=== PATIENT | male | born 1955 | race Two or more races ===

== ENCOUNTER 2018-08-30 01:09 | Inpatient (IN) | payer MEDICAID ==
[~2018-08-30] VITALS: Ht 175.3 cm; Wt 82.6 kg
--- NOTE | 2018-08-30 01:25 | NUR ---
PT BIBRA FROM HOME. PER RA, STATES HE IS MORE ALTERED THAN NORMAL. DENIES SOB, CHEST PAIN, ABDOMINAL PAIN, ETOH. PT AGITATED, ATTEMPTING TO GET OUT OF THE BED. VITAL SIGNS STABLE. SKIN WARM AND INTACT. PT PLACED ON CONTINUOUS MONITOR, WILL CONTINUE TO MONITOR
--- NOTE | 2018-08-30 01:26 | NUR ---
MD AT BEDSIDE FOR EVALUATION
--- NOTE | 2018-08-30 01:28 | NUR ---
IV INITIATED RIGHT AC 18G. LABS DRAWN FROM SITE. NUTRITION TECH AT BEDSIDE FOR COLLECTION. IV INTACT AND PATENT, PLACED ON SALINE LOCK
[2018-08-30] MEDS ORDERED: IV NS 0.9% 500 ML BAG IV ONE (01:30)
[2018-08-30] MEDS ORDERED: LIDOCAINE 2% JEL UROJET 10 ML MM ONE ×2 (01:31→02:30)
--- NOTE | 2018-08-30 01:35 | NUR ---
URINE COLLECTED AND SENT TO LAB
[2018-08-30 01:41] LABS: APPEARANCE,URINE Clear (CLEAR); BILIRUBIN,URINE SMALL (NEGATIVE); BLOOD, URINE Negative Ery/uL (NEGATIVE); COLOR,URINE Yellow (YELLOW); KETONES,URINE 15 (NEGATIVE); LEUKOCYTE ESTERASE ,URINE Negative (NEGATIVE); NITRITE, URINE Negative (NEGATIVE); PH,URINE 8.5 (5.0-8.0); PROTEIN,URINE 30 mg/dl (NEGATIVE); UGLUCOSE Negative (NEGATIVE); UROBILINOGEN,URINE >=8.0 EU/dL (0.2)
[2018-08-30] MEDS ORDERED: ONDANSETRON HCL/PF 4 MG/2 ML VIAL ONE (01:43)
[2018-08-30] MEDS ORDERED: PROPRANOLOL PO (01:44)
[2018-08-30] MEDS ORDERED: INSU100I26 SQ (01:44)
[2018-08-30] MEDS ORDERED: SPIRONOLACTONE (01:44)
[2018-08-30] MEDS ORDERED: LACT10SO PO (01:44)
--- NOTE | 2018-08-30 01:44 | NUR ---
PT'S TO BRING IN PT'S MEDICATIONS. MED LIST DONE FROM PT'S 'S MEMORY.
[2018-08-30 01:46] LABS: BASOPHILS % (AUTO) 0.4 % (0.0-2.0); EOSINOPHILS % (AUTO) 1.8 % (0.0-6.0); HEMATOCRIT 42 % (39-51); HEMOGLOBIN 14.7 g/dL (13.5-17.5); LYMPHOCYTES # (AUTO) 0.9 /CMM (0.8-4.8); LYMPHOCYTES % (AUTO) 18.1 % (20.0-44.0); MEAN CORPUSCULAR HGB CONC 35 g/dl (31.0-36.0); MEAN CORPUSCULAR VOLUME 101 fL (80-96); MONOCYTES # (AUTO) 0.4 /CMM (0.1-1.30); MONOCYTES % (AUTO) 8.1 % (2.0-12.0); NEUTROPHILS # (AUTO) 3.6 /CMM (1.8-8.9); NEUTROPHILS % (AUTO) 71.6 % (43.0-81.0); PLATELET COUNT (AUTO) 94 /CMM (150-450); WHITE BLOOD COUNT (AUTO) 5.1 K/uL (4.3-11.0)
[2018-08-30] MEDS ORDERED: LORAZEPAM INJ 2 MG/ML VIAL ONE ×2 (01:47→02:26)
--- NOTE | 2018-08-30 01:53 | NUR ---
PT YELLING AND BECAME MORE AGITATED. MEDICATED PER MD ORDER. PT STILL ON CONTINUOUS PROVIDER RELATIONS CONSULTANT, WILL CONTINUE TO MONITOR
[2018-08-30 01:55] LABS: CALCIUM, SERUM 8.7 mg/dL (8.5-10.1); CARBON DIOXIDE 22 mmol/L (21-32); CHLORIDE 112 mmol/L (98-107); CREATININE 1.3 mg/dL (0.6-1.3); GLUCOSE 147 mg/dL (74-106); POTASSIUM 4.2 mmol/L (3.5-5.1); SODIUM SERUM 142 mmol/L (136-145); UREA NITROGEN, BLOOD 16 mg/dL (7-18)
[2018-08-30] MEDS ORDERED: ONDANSETRON HCL/PF 4 MG/2 ML VIAL IV ONE (02:00)
[2018-08-30] MEDS ORDERED: LORAZEPAM INJ 2 MG/ML VIAL IV ONE ×2 (02:00→03:00)
[2018-08-30 02:02] LABS: SERUM AMMONIA 262 umol/L (11-32)
[2018-08-30 02:05] LABS: BACTERIA,URINE Few /HPF (None Seen); SQUAMOUS EPITHELIAL CELL,UR Rare /HPF (None Seen)
--- NOTE | 2018-08-30 02:07 | NUR ---
PT BROUGHT BY RADIOLOGY FOR CT
[2018-08-30 02:13] LABS: ALANINE AMINOTRANSFERASE 35 U/L (12-78); ALBUMIN 3.1 g/dL (3.4-5.0); ALCOHOL, BLOOD < 3 mg/dL (0-0); ALKALINE PHOSPHATASE 163 U/L (46-116); ASPARTATE AMINOTRANSFERASE 34 U/L (15-37); BILIRUBIN,DIRECT 0.6 mg/dL (0.0-0.2); BILIRUBIN,TOTAL 2.3 mg/dL (0.2-1.0); LYMPHOCYTES % (MANUAL) 12 % (16-48); MONOCYTES % (MANUAL) 5 % (0-11.0); NEUTROPHILS % (MANUAL) 83 (42-76); TOTAL PROTEIN, SERUM 6.4 g/dL (6.4-8.2)
[2018-08-30 02:14] LABS: ACETAMINOPHEN 0 ug/ml (10-30); SALICYLATE < 0.2 mg/dL (2.8-20.0)
--- NOTE | 2018-08-30 02:26 | NUR ---
RADIOLOGY CALLED, PT TOO AGITATED FOR HEAD CT. MD AWARE. PER VERBAL MD ORDER, WILL ADMINSITER ATIVAN 1MG IV X1 NOW.
[2018-08-30] MEDS ORDERED: LACTULOSE 10 G/15 ML UDC (PYXIS) PR ONE (02:30)
[2018-08-30] MEDS ORDERED: LACTULOSE 10 G/15 ML UDC (PYXIS) NG ONE (02:30)
[2018-08-30] MEDS ORDERED: LACTULOSE 10 G/15 ML UDC (PYXIS) ONE (02:45)
--- NOTE | 2018-08-30 03:29 | NUR ---
GAVE REPORT TO PABLITO KOCH FOR ELMA
[2018-08-30] MEDS: IV NS 0.9% 1,000 ML IV PRN ×2 (03:55→16:46)
--- NOTE | 2018-08-30 03:55 | NUR ---
TRANSFERRED PT TO [facility] 116-1 PER ACLS PROTOCOL
[2018-08-30] MEDS ORDERED: ONDANSETRON HCL/PF 4 MG/2 ML VIAL IVP PRN (04:00)
[2018-08-30] MEDS ORDERED: LACTULOSE 10 G/15 ML UDC (PYXIS) PO PRN (04:00)
[2018-08-30] MEDS ORDERED: Z GUARD REMEDY 2 OZ OINT TP PRN (04:00)
[2018-08-30] MEDS ORDERED: ACETAMINOPHEN 325 MG TABLET PO PRN (04:00)
[2018-08-30] MEDS ORDERED: LACTULOSE 10 G/15 ML UDC (PYXIS) PO ONE (04:00)
[2018-08-30 04:04] VITALS: BP 142/90
--- NOTE | 2018-08-30 07:30 | NUR ---
INITIAL PT YELLING AND BECAME MORE AGITATED. MEDICATED PER MD ORDER AFTER PAGING TRAN VALENTIN. PT STILL ON CONTINUOUS METER MAINTENANCE PERSON NSR AT 73 PT CALMS DOWN WHEN TALKING TO HIM BUT RETURNS TO AGGRESSIVE BEHAVIOR WHEN LEFT ALONE, PT HAS NG-TUBE NPO EXCEPT FOR MEDICATIONS TUBE FLUSHES WELL BED IN LOW POSITION WILL CONTINUE TO MONITOR
[2018-08-30] MEDS: LACTULOSE 10 G/15 ML UDC (PYXIS) PO SCH ×3 (07:57→16:37)
[2018-08-30] MEDS: LORAZEPAM INJ 2 MG/ML VIAL IV PRN ×4 (07:58→22:14)
[2018-08-30 08:00] VITALS: BP 146/83
[2018-08-30] MEDS: SPIRONOLACTONE 25 MG TABLET PO SCH (08:41)
[2018-08-30] MEDS: PROPRANOLOL LA 60 MG CAP.SA.24H PO SCH (08:41)
[2018-08-30] MEDS: RIFAXIMIN 550 MG TABLET PO SCH ×2 (08:41→16:30)
[2018-08-30 12:00] VITALS: BP 152/93
[2018-08-30 16:00] VITALS: BP 114/69
[2018-08-30] MEDS ORDERED: MISCELLANEOUS MED 1 EA EA XX ONE (16:30)
[2018-08-30] MEDS ORDERED: LACTULOSE UDC 200 G in SODIUM CHLORIDE IRRIG SOLUTION 400 ML IR ONE (16:30)
[2018-08-30 19:27] LABS: OCCULT BLOOD STOOL NEGATIVE (NEGATIVE)
[2018-08-30 20:00] VITALS: BP 120/78
--- NOTE | 2018-08-30 20:00 | NUR ---
RN NOTES RECEIVED BEDSIDE REPORT FROM AN RN. PT IS AGITATED AND KEEP MOVING IN THE BED . PT HAS NG-TUBE IN PLACE, NPO EXCEPT FOR MEDICATIONS TUBE FLUSHES WELL BED IN LOW POSITION, HOB IS ELEVATED AT ALL TIME. PATIENT IS ON BILATERAL SOFT WRIST RESTRAINTS. PULSES CHECKED, ALL SAFETY MEASURES ARE IMPLEMENTED. WILL CONTINUE TO MONITOR
--- NOTE | 2018-08-30 22:25 | NUR ---
RN NOTES PATIENT IS BECOMING MORE AGITATED ,MEDICATIONS ARE ALREADY GIVEN . PATIENT PULLED OUT HIS RECTAL TUBE X2. DOCUMENT REVIEW SPECIALIST WILLIAM AND NURSE STREET CONTRACTOR NOTIFIED. SITTER 1:1 HAS BEEN ORDERED FOR THIS PATIENT. WILL CONTINUE TO MONITOR PATIENT ACCORDINGLY.
[2018-08-31] MEDS: LACTULOSE 10 G/15 ML UDC (PYXIS) PO SCH ×2 (00:10→05:21)
--- NOTE | 2018-08-31 04:00 | NUR ---
RN NOTES PATIENT TEMPERATURE IS 100.1. COOLING MEASURES ARE PROVIDED. WILL RECHECK TEMP. LATER AGAIN.
[2018-08-31 04:05] VITALS: BP 116/58
--- NOTE | 2018-08-31 04:30 | NUR ---
RN NOTES PATIENT TEMPERATURE RECHECKED IT IS 98.1. WILL CONT. TO MONITOR PATIENT ACCORDINGLY.
--- NOTE | 2018-08-31 05:00 | NUR ---
RN NOTES PATIENT REPORT IS GIVEN TO AUGUST TOM TRANSFER OF PT CARE. PATIENT IS A/OX1 WITH CONFUSION BUT V/S ARE WNL . PATIENT IS IN STABLE CONDITION, STILL ON BILATERAL SOFT WRIST RESTRAINTS.
--- NOTE | 2018-08-31 06:36 | NUR ---
MS RN NOTES NO ACUTE CHANGES NOTED DURING THE SHIFT. DUE MEDS GIVEN. PROVIDED COMFORT AND SAFETY. WILL ENDORSE TO THE AM NURSE FOR CONTINUITY OF CARE.
[2018-08-31 06:44] LABS: BASOPHILS % (AUTO) 0.3 % (0.0-2.0); EOSINOPHILS % (AUTO) 1.2 % (0.0-6.0); HEMATOCRIT 40 % (39-51); HEMOGLOBIN 13.8 g/dL (13.5-17.5); LYMPHOCYTES % (AUTO) 12.3 % (20.0-44.0); MEAN CORPUSCULAR HGB CONC 35 g/dl (31.0-36.0); MEAN CORPUSCULAR VOLUME 102 fL (80-96); MONOCYTES # (AUTO) 0.8 /CMM (0.1-1.30); MONOCYTES % (AUTO) 9.2 % (2.0-12.0); NEUTROPHILS # (AUTO) 6.3 /CMM (1.8-8.9); PLATELET COUNT (AUTO) 84 /CMM (150-450); WHITE BLOOD COUNT (AUTO) 8.1 K/uL (4.3-11.0)
[2018-08-31 07:10] LABS: ALBUMIN 2.9 g/dL (3.4-5.0); BILIRUBIN,TOTAL 3.8 mg/dL (0.2-1.0); CALCIUM, SERUM 8.7 mg/dL (8.5-10.1); CREATININE 1.2 mg/dL (0.6-1.3); MAGNESIUM 1.4 mg/dL (1.8-2.4); PHOSPHORUS 2.7 mg/dL (2.5-4.9); POTASSIUM 3.5 mmol/L (3.5-5.1); TOTAL PROTEIN, SERUM 5.8 g/dL (6.4-8.2)
[2018-08-31 07:20] LABS: THYROID STIMULATING HORMONE 1.793 uIU/mL (0.358-3.74)
--- NOTE | 2018-08-31 07:51 | NUR ---
MS RN NOTES PATIENT IS IN STABLE CONDITION. IN NO APPARENT DISTRESS. BEDSIDE RAILS ARE UPX2. BED IS LOCKED AND LOWERED. CALL LIGHT IS WITHIN REACH. IV LINE IS INTACT AND PATENT. WILL CONTINUE TO MONITOR PATIENT.
[2018-08-31] MEDS: PROPRANOLOL LA 60 MG CAP.SA.24H PO SCH (09:00)
[2018-08-31] MEDS: SPIRONOLACTONE 25 MG TABLET PO SCH (09:33)
[2018-08-31] MEDS: RIFAXIMIN 550 MG TABLET PO SCH (09:33)
--- NOTE | 2018-08-31 09:38 | NUR ---
NON ADMINISTERED PROPRANOLOL. PATIENT IS ON AN NG TUBE AND MEDICATION NEEDS TO BE GIVEN WHOLE. SPOKE TO PHARMACY. PHARMACY WILL ASK THE DOCTOR IF IT IS OK TO GIVE TABLET FORM. WILL FOLLOW UP WITH PHARMACY.
[2018-08-31] MEDS: Magnesium 1GM/D5W 100ML PREMIX 100 ML IV SCH ×4 (09:39→14:07)
[2018-08-31 10:37] LABS: LYMPHOCYTES % (MANUAL) 13 % (16-48); MONOCYTES % (MANUAL) 6 % (0-11.0); NEUTROPHILS % (MANUAL) 81 (42-76)
[2018-08-31] MEDS ORDERED: SPIR25TA6 PO (11:57)
[2018-08-31] MEDS ORDERED: PROP10TA10 PO (11:57)
[2018-08-31] MEDS ORDERED: TEMA15CA PO (11:57)
[2018-08-31] MEDS ORDERED: OMEP40CA37 PO (11:57)
[2018-08-31] MEDS: PROPRANOLOL HCL 10 MG TABLET NG SCH ×2 (12:46→17:02)
[2018-08-31] MEDS ORDERED: PHENOL/SODIUM PHENOLATE 1 BOTTLE MM PRN (13:00)
[2018-08-31 16:00] VITALS: BP 137/82
[2018-08-31] MEDS: LACTULOSE 10 G/15 ML UDC (PYXIS) NG SCH (17:02)
[2018-08-31] MEDS: RIFAXIMIN 550 MG TABLET NG SCH (17:02)
--- NOTE | 2018-08-31 18:29 | NUR ---
MS RN CLOSING NOTES PATIENT IN STABLE CONDITION, IN NO APPARENT DISTRESS. IV IS INTACT AND PATENT. CALL LIGHT IS WITHIN REACH. BEDSIDE RAILS ARE UPX2. BED IS LOCKED AND LOWERED. WILL ENDORSE CARE TO NIGHTSHIFT NURSE FOR ELMA.
[2018-08-31 20:00] VITALS: BP 138/75
--- NOTE | 2018-08-31 20:00 | NUR ---
MS RN NOTES RECEIVED PTS IN BED AWAKE AND RESPONSIVE , V/S STABLE AFEBRILE, ON 1:1 SITTER AT BEDSIDE , PTS ON NG TUBE INTACT AND PATENT , ALL NEEDS ATTENDED TOO CALL LIGHT WITHIN REACH KEPT PTS CLEAN DRY AND COMFORTABLE.WILL CONTINUE TO MONITOR PTS.6
--- NOTE | 2018-08-31 22:59 | NUR ---
MS RN NOTES PTS CONTINUE ON NS AT 100CC/HR INFUSING WELL.
--- NOTE | 2018-08-31 23:51 | NUR ---
MS RN NOTES PTS IS NPO EXCEPT MEDS,
[2018-09-01] MEDS: LACTULOSE 10 G/15 ML UDC (PYXIS) NG SCH ×4 (00:33→17:04)
[2018-09-01] MEDS: IV NS 0.9% 1,000 ML IV PRN ×2 (01:47→16:55)
[2018-09-01 04:00] VITALS: BP 124/67
--- NOTE | 2018-09-01 06:10 | NUR ---
MS RN NOTES PTS REMAINS IN BED AWaKE ALERT AND RESPONSIVE , REMAINS ON NG TUBE INTACT AND PATENT V/S STABLE AFEBRILE ,ON 1:1 SITTER AT BEDSIDE .ALL NEEDS ATTENDED TOO .CALL LIGHT WITHIN REACH ,NO ELMA NOTED AT THIS TIME,WILL ENDORSE TO RN DAY SHIFT FOR CONTINUITY OF CARE.
[2018-09-01 08:00] VITALS: BP 131/76
--- NOTE | 2018-09-01 08:00 | NUR ---
MS RN RECEIVING NOTES RECEIVED THE PT FROM AUGUST JACKSON .PT IS LYING ON BED.HAS NG TUBE IS IN PLACE AND PT IS ON NPO STILL.NO VOMITING NOTED.SITTER IS AT BEDSIDE.ON ROOM AIR,TOLERATING WELL.NO SOB AND ACUTE DISTRESS NOTED.IV LINE IS ON LEFT HAND G20 WITH IV FLUIDS RUNNING.SITE IS CLEAN,DRY AND INTACT.NO INFILTRATION NOTED.SAFETY IS MAINTAINED AT ALL TIMES.BED IS IN LOW POSITION AND LOCKED.CALL LIGHT IS WITHIN REACH,WILL CONTINUE TO MONITOR THE PT CLOSELY.
[2018-09-01 08:23] LABS: BASOPHILS % (AUTO) 0.4 % (0.0-2.0); HEMATOCRIT 39 % (39-51); HEMOGLOBIN 13.6 g/dL (13.5-17.5); LYMPHOCYTES # (AUTO) 0.7 /CMM (0.8-4.8); LYMPHOCYTES % (AUTO) 12.5 % (20.0-44.0); MAGNESIUM 1.7 mg/dL (1.8-2.4); MEAN CORPUSCULAR HGB CONC 35 g/dl (31.0-36.0); MEAN CORPUSCULAR VOLUME 104 fL (80-96); MONOCYTES # (AUTO) 0.6 /CMM (0.1-1.30); MONOCYTES % (AUTO) 10.1 % (2.0-12.0); NEUTROPHILS # (AUTO) 4.4 /CMM (1.8-8.9); PHOSPHORUS 2.5 mg/dL (2.5-4.9); PLATELET COUNT (AUTO) 72 /CMM (150-450); RED BLOOD CELL COUNT(AUTO) 3.74 MIL/uL (4.5-6.0); WHITE BLOOD COUNT (AUTO) 5.9 K/uL (4.3-11.0)
[2018-09-01] MEDS: RIFAXIMIN 550 MG TABLET NG SCH ×2 (08:42→16:55)
[2018-09-01] MEDS: PANTOPRAZOLE 40 MG/PACK PACK NG SCH (08:42)
[2018-09-01] MEDS: PROPRANOLOL HCL 10 MG TABLET NG SCH ×3 (08:42→16:55)
[2018-09-01] MEDS: SPIRONOLACTONE 25 MG TABLET NG SCH (08:42)
[2018-09-01] MEDS: Magnesium 1GM/D5W 100ML PREMIX 100 ML IV SCH ×2 (09:29→10:31)
[2018-09-01 10:05] LABS: BAND % (MANUAL) 2 % (0.0-5.0); EOSINOPHILS % (MANUAL) 5 % (0-4); LYMPHOCYTES % (MANUAL) 10 % (16-48); MONOCYTES % (MANUAL) 6 % (0-11.0); NEUTROPHILS % (MANUAL) 77 (42-76)
[2018-09-01 12:00] VITALS: BP 137/66
--- NOTE | 2018-09-01 13:25 | NUR ---
MS RN NOTES TUBE PUSHER ANTONIO MATIAS SEEN THE PT AND THE FAMILY AND PT REQUEST,ORDERED TO D/C N GTUBE AND HAVE REGULAR DIET AND LET THE TUBE PUSHER KNOW IF THE PT TOLERATES THE FOOD OR NOT. IS AT BEDSIDE.NEW ORDERS NOTED AND CARRIED OUT.
--- NOTE | 2018-09-01 13:52 | NUR ---
MS RN NOTES NG TUBE FROM RIGHT NARES IS REMOVED,PT TOLERATED WELL AND NO COMPLICATIONS NOTED. IS AT BEDSIDE.
[2018-09-01 16:00] VITALS: BP 116/67
--- NOTE | 2018-09-01 18:35 | NUR ---
MS RN CLOSING NOTES PT IS LYING ON BED. PT IS MORE ALERT AND ORIENTED X1, NO NAUSEA AND VOMITING NOTED. TOLERATING FEEDING WELL BY MOUTH, NO SIGNS OF ASPIRATION NOTED. ON ROOM AIR, TOLERATING WELL. NO SOB AND ACUTE DISTRESS NOTED. IV LINE IS ON LEFT HAND G20 WITH IV FLUIDS RUNNING. SITE IS CLEAN, DRY AND INTACT. NO INFILTRATION NOTED. ALL NEEDS MET. SAFETY MAINTAINED AT ALL TIMES. BED IS LOCKED AND IN LOWEST POSITION. CALL LIGHT WITHIN REACH. WILL ENDORSE TO DIRECTOR BUILDING NURSE FOR CONTINUITY OF CARE.
[2018-09-01 20:00] VITALS: BP 114/72
[2018-09-02] MEDS: LACTULOSE 10 G/15 ML UDC (PYXIS) NG SCH ×4 (00:03→17:30)
[2018-09-02] MEDS: IV NS 0.9% 1,000 ML IV PRN ×3 (02:47→19:23)
[2018-09-02 04:00] VITALS: BP 119/59
[2018-09-02 06:47] LABS: ALBUMIN 2.3 g/dL (3.4-5.0); BILIRUBIN,TOTAL 2.4 mg/dL (0.2-1.0); CALCIUM, SERUM 7.8 mg/dL (8.5-10.1); CREATININE 1.1 mg/dL (0.6-1.3); MAGNESIUM 1.7 mg/dL (1.8-2.4); PHOSPHORUS 2.1 mg/dL (2.5-4.9); POTASSIUM 3.6 mmol/L (3.5-5.1)
[2018-09-02 06:48] LABS: BASOPHILS % (AUTO) 0.3 % (0.0-2.0); EOSINOPHILS % (AUTO) 2.6 % (0.0-6.0); HEMATOCRIT 35 % (39-51); HEMOGLOBIN 12.5 g/dL (13.5-17.5); LYMPHOCYTES # (AUTO) 0.7 /CMM (0.8-4.8); MEAN CORPUSCULAR HGB CONC 35 g/dl (31.0-36.0); MEAN CORPUSCULAR VOLUME 102 fL (80-96); MONOCYTES # (AUTO) 0.6 /CMM (0.1-1.30); NEUTROPHILS # (AUTO) 3.6 /CMM (1.8-8.9); NEUTROPHILS % (AUTO) 72.1 % (43.0-81.0); PLATELET COUNT (AUTO) 65 /CMM (150-450); RED BLOOD CELL COUNT(AUTO) 3.48 MIL/uL (4.5-6.0)
--- NOTE | 2018-09-02 07:30 | NUR ---
MS RN SHIFT NOTE RECIEVED PATIENT FROM NIGHT NURSE, ALERT TO PERSON AND BIRTHDAY, TAMAZIGHT SPEAKING, CONTINENT USES URINAL, REGULAR DIET, IV LF FOREARM 20 GAUGE INTACT, IV R HAND 22 GAUGE PATENT AND INTACT. BED LOW TO FLOOR BED ALARM ON. CONTINUE TO MONITOR LABS AND NUTRITIONAL STATUS.
[2018-09-02 08:00] VITALS: BP 110/63
[2018-09-02] MEDS: PROPRANOLOL HCL 10 MG TABLET NG SCH ×3 (08:16→17:29)
[2018-09-02] MEDS: RIFAXIMIN 550 MG TABLET NG SCH ×2 (08:16→17:30)
[2018-09-02] MEDS: PANTOPRAZOLE 40 MG/PACK PACK NG SCH (08:17)
[2018-09-02] MEDS: SPIRONOLACTONE 25 MG TABLET NG SCH (08:17)
--- NOTE | 2018-09-02 08:50 | NUR ---
WOUND CARE CONSULT: PT PRESENTS WITH RT ELBOW SKIN TEAR, PRESENT ON ADMISSION. PT ABLE TO ASSIST WITH TURNING AND REPOSITIONING IN BED. PT CONTINENT AT THIS TIME. WILL SEE PRN. GAUTAM IN AGREEMENT WITH PLAN OF CARE. Addendum: 09/02/18 at 0851 by CAM ONEILL WNDNU Amended: Links added.
[2018-09-02 09:30] LABS: BAND % (MANUAL) 1 % (0.0-5.0); EOSINOPHILS % (MANUAL) 3 % (0-4); LYMPHOCYTES % (MANUAL) 11 % (16-48); MONOCYTES % (MANUAL) 13 % (0-11.0); NEUTROPHILS % (MANUAL) 72 (42-76)
[2018-09-02] MEDS: Magnesium 1GM/D5W 100ML PREMIX 100 ML IV SCH ×2 (10:13→10:48)
[2018-09-02 12:00] VITALS: BP 114/64
[2018-09-02 16:00] VITALS: BP 144/73
[2018-09-02] MEDS ORDERED: K PHOS NEUTRAL 250 MG TABLET PO ONE (16:00)
[2018-09-02] MEDS: BLOOD SUGAR DIAGNOSTIC 1 EACH STRIP IN SCH ×2 (18:56→22:11)
[2018-09-02] MEDS: INSULIN REGULAR, HUMAN 100 UNIT/ML 3 ML VIAL SQ PRN ×2 (18:58→22:11)
[2018-09-02] MEDS ORDERED: DEXTROSE 50%-WATER 50 ML DISP.SYRIN IV PRN (19:00)
[2018-09-02 20:00] VITALS: BP 158/95
--- NOTE | 2018-09-02 21:00 | NUR ---
RN NOTE NOTIFIED CHINYERE NÚÑEZ THAT PATIENT IS ANXIOUS, AGGRESSIVE AND WE HAD TO CALL SECURITY, NOTIFIED CHINYERE NÚÑEZ REGARDING AM AMMONIA LEVEL OF 90, PER CHINYERE NÚÑEZ NEW ORDER OF ACUTE BILATERAL SOFT WRIST RESTRAINTS GIVEN AND CARRIED OUT Addendum: 09/02/18 at 2245 by FARHANA DUTTA RN AMMONIA LEVEL 97
[2018-09-02] MEDS: LORAZEPAM INJ 2 MG/ML VIAL IV PRN (21:04)
[2018-09-02] MEDS ORDERED: RIFAXIMIN 550 MG TABLET PO STA (21:05)
[2018-09-02] MEDS ORDERED: RIFAXIMIN 550 MG TABLET PO ONE ×2 (21:30)
--- NOTE | 2018-09-02 21:45 | NUR ---
RN NOTE NOTIFIED CHINYERE NÚÑEZ, STILL PERIODS OF AGGRESSION NOTED, INCREASED ANXIETY AND AGRESSION, PER CHINYERE VALENTIN, ONE TIME OF HALDOL 5MG IM ONCE GIVEN
[2018-09-02] MEDS ORDERED: HALOPERIDOL LACTATE INJ 5 MG/ML VIAL IM ONE (22:00)
[2018-09-02] MEDS: LACTULOSE 10 G/15 ML UDC (PYXIS) PO SCH (23:11)
--- NOTE | 2018-09-03 01:11 | NUR ---
RN NOTE REPORT GIVEN TO DONAVAN KOCH
[2018-09-03 04:00] VITALS: BP 121/69
[2018-09-03] MEDS: LACTULOSE 10 G/15 ML UDC (PYXIS) PO SCH ×4 (05:30→23:02)
[2018-09-03 07:30] LABS: CALCIUM, SERUM 8.4 mg/dL (8.5-10.1); CREATININE 1.2 mg/dL (0.6-1.3); MAGNESIUM 1.4 mg/dL (1.8-2.4); POTASSIUM 3.8 mmol/L (3.5-5.1)
[2018-09-03 08:00] VITALS: BP 113/44
--- NOTE | 2018-09-03 08:00 | NUR ---
SHIPPING CLERK/ADMIN NOTE RECEIVED PATIENT IN BED ,ALERT WITH CONFUSION WITH SITTER AT BEDSIDE, ON TELE MONITOR SR HR 60 ,PLAN OF CARE DISCUSSED WITH PATIENT , ABLE TO EAT BREAKFAST , SELF , NO SOB NOTED RESPIRATION UNLABORED ,WILL CONT TO MONITOR CLOSELY
[2018-09-03] MEDS: SPIRONOLACTONE 25 MG TABLET NG SCH (08:27)
[2018-09-03] MEDS: RIFAXIMIN 550 MG TABLET NG SCH (08:27)
[2018-09-03] MEDS: PANTOPRAZOLE 40 MG/PACK PACK NG SCH (08:28)
[2018-09-03] MEDS: INSULIN REGULAR, HUMAN 100 UNIT/ML 3 ML VIAL SQ PRN ×4 (08:33→21:48)
[2018-09-03] MEDS: BLOOD SUGAR DIAGNOSTIC 1 EACH STRIP IN SCH ×4 (08:34→21:42)
[2018-09-03] MEDS: PROPRANOLOL HCL 10 MG TABLET NG SCH ×3 (09:00→17:00)
[2018-09-03] MEDS: RIFAXIMIN 550 MG TABLET PO SCH ×2 (09:00→17:06)
--- NOTE | 2018-09-03 09:54 | NUR ---
SECURITY SHIFT MANAGER NOTE ALL MEDS WAS GIVEN ORDERED XIFAXAN DUPLICATE ORDER
[2018-09-03] MEDS: Magnesium 1GM/D5W 100ML PREMIX 100 ML IV SCH ×4 (11:58→15:35)
[2018-09-03 13:19] LABS: ALBUMIN 2.5 g/dL (3.4-5.0); BILIRUBIN,DIRECT 0.5 mg/dL (0.0-0.2); BILIRUBIN,TOTAL 2.4 mg/dL (0.2-1.0); TOTAL PROTEIN, SERUM 5.1 g/dL (6.4-8.2)
--- NOTE | 2018-09-03 14:57 | NUR ---
MS RN NOTE SOFT RESTRAIN D\SYMONE, SITTER A BEDSIDE ,PATIENT MORE COOPERATIVE AND CALM AT THIS TIME WILL F\U
[2018-09-03 16:00] VITALS: BP 141/74
[2018-09-03] MEDS: IV NS 0.9% 1,000 ML IV PRN (17:05)
--- NOTE | 2018-09-03 18:14 | NUR ---
THERMODYNAMICS ENGINEER NOTE ASSISTED TO BR, ALL NEEDS ATTENDED ,JESSICA RN ATTENDING AMBULATORY CARE FROM NEURO AT BEDSIDE
[2018-09-03 20:00] VITALS: BP 136/62
--- NOTE | 2018-09-04 06:56 | NUR ---
MED NOTE: CALLED PHARMACY TO REFILL LACTULOSE IN THE OMNICELL. WILL ENDORSE TO AM SHIFT.
--- NOTE | 2018-09-04 07:00 | NUR ---
MS RN OPENING NOTES RECEIVED PT LYING ON BED.ALERT/ORIENTED X3,VINCENTIAN SPEAKING PT.ON ROOM AIR,TOLERATING WELL.NO SOB AND ACUTE DISTRESS NOTED.IV LINE IS ON LEFT FA G20,LEFT AC G22,SITE IS CLEAN,DRY AND INTACT.SAFETY IS MAINTAINED AT ALL TIMES.BED IS IN LOW POSITION AND LOCKED.CALL LIGHT IS WITHIN REACH.SITTER IS AT BED SIDE,CAN AMBULATE WITH MINIMAL SUPERVISION.WILL CONTINUE TO MONITOR THE PT CLOSELY.
[2018-09-04 07:22] LABS: BASOPHILS % (AUTO) 0.5 % (0.0-2.0); EOSINOPHILS % (AUTO) 4.7 % (0.0-6.0); HEMATOCRIT 32 % (39-51); HEMOGLOBIN 11.7 g/dL (13.5-17.5); LYMPHOCYTES # (AUTO) 0.7 /CMM (0.8-4.8); LYMPHOCYTES % (AUTO) 17.5 % (20.0-44.0); MEAN CORPUSCULAR HGB CONC 36 g/dl (31.0-36.0); MEAN CORPUSCULAR VOLUME 101 fL (80-96); MONOCYTES # (AUTO) 0.4 /CMM (0.1-1.30); MONOCYTES % (AUTO) 11.2 % (2.0-12.0); NEUTROPHILS # (AUTO) 2.5 /CMM (1.8-8.9); NEUTROPHILS % (AUTO) 66.1 % (43.0-81.0); PLATELET COUNT (AUTO) 74 /CMM (150-450); WHITE BLOOD COUNT (AUTO) 3.8 K/uL (4.3-11.0)
[2018-09-04 07:27] LABS: CALCIUM, SERUM 8.3 mg/dL (8.5-10.1); CREATININE 1.2 mg/dL (0.6-1.3); MAGNESIUM 1.4 mg/dL (1.8-2.4); PHOSPHORUS 3.1 mg/dL (2.5-4.9); POTASSIUM 3.6 mmol/L (3.5-5.1)
[2018-09-04] MEDS: INSULIN REGULAR, HUMAN 100 UNIT/ML 3 ML VIAL SQ PRN ×4 (07:49→21:32)
[2018-09-04] MEDS: BLOOD SUGAR DIAGNOSTIC 1 EACH STRIP IN SCH ×4 (07:49→21:33)
[2018-09-04 08:00] VITALS: BP 106/56
--- NOTE | 2018-09-04 08:00 | NUR ---
MS RN NOTES LACTULOSE IS STILL OUT OF STOCK,CALLED THE PHARMACIST,MS HUBBARD.SAID TO DELIVER SOON.
[2018-09-04] MEDS: SPIRONOLACTONE 25 MG TABLET NG SCH (08:13)
[2018-09-04] MEDS: PANTOPRAZOLE 40 MG/PACK PACK NG SCH (08:14)
[2018-09-04] MEDS: RIFAXIMIN 550 MG TABLET PO SCH ×2 (08:14→16:09)
[2018-09-04] MEDS: PROPRANOLOL HCL 10 MG TABLET NG SCH ×3 (08:14→16:10)
--- NOTE | 2018-09-04 08:15 | NUR ---
MS RN NOTES CHECKED LACTULOSE IN OMNICELL,STILL OUT OF STOCK.
[2018-09-04] MEDS: Magnesium 1GM/D5W 100ML PREMIX 100 ML IV SCH ×4 (10:14→13:58)
--- NOTE | 2018-09-04 10:27 | NUR ---
MS RN NOTES MEDS LACTULOSE IS STILL OUT OF STOCK.WAITING FOR THE PHARMACY TO DELIVER IT.
--- NOTE | 2018-09-04 12:10 | NUR ---
MS RN NOTES LACTULOSE IS STILL ON OUT OF STOCK,CALLED PHARMACIST CRISPIN,MADE AWARE.
[2018-09-04] MEDS: LACTULOSE 10 G/15 ML UDC (PYXIS) PO SCH ×2 (12:52→17:15)
[2018-09-04 16:00] VITALS: BP 122/70
--- NOTE | 2018-09-04 18:35 | NUR ---
MS RN CLOSING NOTES PT IS LYING ON BED.ALERT/ORIENTED X2.ON ROOM AIR,TOLERATING WELL.RESPIRATION IS EVEN AND NON LABORED.SITTER IS AT BEDSIDE.ENDORSED TO SOLUTION MIXER RN FOR ELMA.
--- NOTE | 2018-09-04 20:09 | NUR ---
RN MS OPENING NOTES RECEIVED PT IN BED, AWAKE ALERT ORIENTED X2-3 BREATHING EVEN AND UNLABORED ON ROOM AIR, NO COUGH, CONGESTION OR SOB. NO COMPLAINT OF PAIN OR DISCOMFORT AT THIS TIME, IV ACCESS ON THE L FA #20 WITH NS @100ML/HR. BED IN LOWEST LOCKED POSITION, CALL LIGHT WITHIN REACH AT ALL TIMES, WILL CONTINUE TO MONITOR.
[2018-09-05] VITALS: BP 122/68
[2018-09-05] MEDS: LACTULOSE 10 G/15 ML UDC (PYXIS) PO SCH ×2 (00:02→12:12)
[2018-09-05] MEDS: IV NS 0.9% 1,000 ML IV PRN (01:50)
--- NOTE | 2018-09-05 06:53 | NUR ---
RN MS CLOSING NOTES PT REMAINS IN BED, AWAKE ALERT ORIENTED X2-3 BREATHING EVEN AND UNLABORED ON ROOM AIR, NO COUGH, CONGESTION OR SOB. NO COMPLAINT OF PAIN OR DISCOMFORT AT THIS TIME, IV ACCESS ON THE L FA #20 AND L HAND G22 WITH NS @100ML/HR. BED IN LOWEST LOCKED POSITION, CALL LIGHT WITHIN REACH AT ALL TIMES, WILL ENDORSE TO DAY NURSE FOR ELMA
[2018-09-05 06:59] LABS: CALCIUM, SERUM 8.2 mg/dL (8.5-10.1); CREATININE 1.3 mg/dL (0.6-1.3); MAGNESIUM 1.4 mg/dL (1.8-2.4); POTASSIUM 3.9 mmol/L (3.5-5.1)
[2018-09-05] MEDS: BLOOD SUGAR DIAGNOSTIC 1 EACH STRIP IN SCH ×2 (07:30→12:04)
[2018-09-05 08:00] VITALS: BP 127/65
[2018-09-05] MEDS: SPIRONOLACTONE 25 MG TABLET NG SCH ×2 (08:39→08:44)
[2018-09-05] MEDS: INSULIN REGULAR, HUMAN 100 UNIT/ML 3 ML VIAL SQ PRN ×2 (08:43→12:17)
[2018-09-05] MEDS: PANTOPRAZOLE 40 MG/PACK PACK NG SCH (08:44)
[2018-09-05] MEDS: RIFAXIMIN 550 MG TABLET PO SCH (08:44)
[2018-09-05] MEDS: PROPRANOLOL HCL 10 MG TABLET NG SCH ×2 (08:47→12:12)
[2018-09-05] MEDS ORDERED: Magnesium 1GM/D5W 100ML PREMIX 100 ML IV SCH (09:16)
[2018-09-05 12:00] VITALS: BP 125/71
[2018-09-05 12:12] VITALS: BP 125/71
[2018-09-05] MEDS ORDERED: RIFA550T PO (13:19)
[2018-09-05] MEDS ORDERED: FURO40TA5 PO (13:19)
[2018-09-05] MEDS ORDERED: LACT10SO6 PO (13:19)
--- NOTE | 2018-09-05 15:14 | NUR ---
Reviewed discharge instructions and current med list with pt and his . Family stated they had no questions or concerns at this time. #20LFA and #22LH d/c with tip intact. Dry dsg applied to old PIV sites. Walked pt and his to front lobby. Signing off care for this pt.
== END 2018-09-05 15:05 | disposition home or self-care (01) | DRG 279 ==
LOC: ER 01:14 → TELE-TD 03:22 → TELE1 04:10 → MEDSG1 15:09 → TELE1 09-02 22:15 → MEDSG1 09-03 09:52
PROVIDERS: ADMIT Registered Nurse; ATTEND Nurse Practitioner Acute Care
DX: K72.00 Acute and subacute hepatic failure without coma (principal); I50.33 Acute on chronic diastolic (congestive) heart failure; E87.2 Acidosis; D69.6 Thrombocytopenia, unspecified; E44.1 Mild protein-calorie malnutrition; E83.42 Hypomagnesemia; K72.10 Chronic hepatic failure without coma; E11.9 Type 2 diabetes mellitus without complications; K74.60 Unspecified cirrhosis of liver; I11.0 Hypertensive heart disease with heart failure; R74.0 Nonspecific elevation of levels of transaminase and lactic acid dehydrogenase [LDH]; E80.6 Other disorders of bilirubin metabolism; K80.20 Calculus of gallbladder without cholecystitis without obstruction; R41.0 Disorientation, unspecified
CPT/HCPCS: 36415; 70450-TC; 71045-TC; 80048-TC; 80053-TC; 80061-TC; 80076-TC; 80305; 81000-TC; 82140-TC; 82272-TC; 82962-TC; 83540-TC; 83605-TC; 83735-TC; 84100-TC; 84443-TC; 84484-TC; 85025-TC; 85045-TC; 85730-TC; 87040-TC; 87081-TC; 87086-TC; 87806; 93307-TC; A4217; A6402; A6403; G0378; G0480; J1630; J1815; J2060; J2405; J3475; J3490; J7030; J7040

== ENCOUNTER 2018-09-10 06:42 | Inpatient (IN) | payer MEDICAID ==
[~2018-09-10] VITALS: Ht 170.2 cm; Wt 79.5 kg
[~2018-09-10 06:42] MED LIST: FURO40TA5 PO; INSU100I26 SQ; LACT10SO6 PO; OMEP40CA37 PO; PROP10TA10 PO; RIFA550T PO; TEMA15CA PO
--- NOTE | 2018-09-10 06:50 | NUR ---
PT BIBRA C/C NAUSEA X 6 HRS. PER PARAMEDICS, PT NOT BEEN ABLE TO VOMIT. PT NAMIBIAN SPEAKING ONLY. NAD NOTED. RESP EVEN AND UNLABORED. PT ON MONITOR IN BED 10. WILL CONTINUE TO MONITOR.
[2018-09-10] MEDS ORDERED: ONDANSETRON HCL/PF 4 MG/2 ML VIAL ONE (06:52)
[2018-09-10] MEDS ORDERED: IV NS 0.9% 1,000 ML BAG IV ONE (07:00)
[2018-09-10] MEDS ORDERED: ONDANSETRON HCL/PF 4 MG/2 ML VIAL IVP ONE (07:00)
--- NOTE | 2018-09-10 07:10 | NUR ---
BLOOD DRAWN AND GIVEN TO LAB
[2018-09-10 07:17] LABS: EOSINOPHILS % (AUTO) 3.6 % (0.0-6.0); HEMATOCRIT 39 % (39-51); HEMOGLOBIN 14.1 g/dL (13.5-17.5); LYMPHOCYTES # (AUTO) 0.7 /CMM (0.8-4.8); LYMPHOCYTES % (AUTO) 17.3 % (20.0-44.0); MEAN CORPUSCULAR HGB CONC 36 g/dl (31.0-36.0); MEAN CORPUSCULAR VOLUME 101 fL (80-96); MONOCYTES # (AUTO) 0.4 /CMM (0.1-1.30); MONOCYTES % (AUTO) 10.3 % (2.0-12.0); NEUTROPHILS # (AUTO) 2.9 /CMM (1.8-8.9); NEUTROPHILS % (AUTO) 67.8 % (43.0-81.0); PLATELET COUNT (AUTO) 94 /CMM (150-450); RED BLOOD CELL COUNT(AUTO) 3.89 MIL/uL (4.5-6.0); WHITE BLOOD COUNT (AUTO) 4.2 K/uL (4.3-11.0)
--- NOTE | 2018-09-10 07:24 | NUR ---
REPORT RECEIVED FROM RAKEL KOCH FOR ELMA
[2018-09-10 07:26] LABS: CALCIUM, SERUM 8.9 mg/dL (8.5-10.1); CREATININE 1.2 mg/dL (0.6-1.3); POTASSIUM 4.3 mmol/L (3.5-5.1)
--- NOTE | 2018-09-10 07:34 | NUR ---
PT A&O x 2, IN BED COMFORTABLY ASLEEP, HOOKED TO MONITOR, EASILY AROUSED BY VOICE. WILL CONTINUE TO MONITOR
[2018-09-10 07:37] LABS: BILIRUBIN,DIRECT 0.4 mg/dL (0.0-0.2); TOTAL PROTEIN, SERUM 6.2 g/dL (6.4-8.2)
[2018-09-10 07:48] LABS: LYMPHOCYTES % (MANUAL) 19 % (16-48); MONOCYTES % (MANUAL) 11 % (0-11.0); NEUTROPHILS % (MANUAL) 70 (42-76)
--- NOTE | 2018-09-10 07:52 | NUR ---
called [facility] for panel.
[2018-09-10 08:00] VITALS: BP 109/64
[2018-09-10] MEDS ORDERED: LACTULOSE 10 G/15 ML UDC (PYXIS) PO ONE (08:00)
[2018-09-10] MEDS ORDERED: LACTULOSE 10 G/15 ML UDC (PYXIS) ONE (08:01)
--- NOTE | 2018-09-10 08:59 | NUR ---
Note aleja in EDM - 09/10/18 at 0915 by LIAM RECEIVED REPORT FROM AUGUST ESPINOZA FOR ELMA. PT IS AAOX4 WOLOF SPEAKING ONLY, NOT IN RESPIRATORY DISTRESS, V/S STABLE, KEPT RESTED AND COMFORTABLE, AWAITING ROOM FOR ADMISSION.
--- NOTE | 2018-09-10 09:16 | NUR ---
REPORT GIVEN TO TAMI KOCH OF MED-SURG UNIT FOR ELMA
--- NOTE | 2018-09-10 09:45 | NUR ---
MS RN NOTES ADMITTED PATIENT FROM ER, REPORT GIVEN BY LE, ALERT ORIENTED X 3. NO ACUTE DISTRESS NOTED. BREATHING UNLABORED. DENIED ANY PAIN AT THIS TIME. IV ACCESS PATENT AND INTACT, NO REDNESS NO SWELLING NOTED. ORIENTED TO THE ROOM. NEEDS ATTENDED AND ANTICIPATED. SAFETY MEASURES IN PLACE. CALL LIGHT WITHIN REACH. WILL CONTINUE TO MONITOR ACCORDINGLY.
--- NOTE | 2018-09-10 10:56 | NUR ---
DIRECTOR DATA ANALYTICS NOTES SEEN AND EVALUATED BY DR MONICA PANCHAL WITH NEW DIET ORDERS MADE, NOTED AND CARRIED OUT.
[2018-09-10] MEDS ORDERED: ZOLPIDEM TARTRATE 5 MG TABLET PO PRN (11:30)
[2018-09-10] MEDS ORDERED: MAGNESIUM HYDROXIDE 30 ML UDC PO PRN (11:30)
[2018-09-10] MEDS ORDERED: ONDANSETRON HCL/PF 4 MG/2 ML VIAL IVP PRN (11:30)
[2018-09-10] MEDS ORDERED: MAG HYDROX/AL HYDROX/SIMETH 30 ML UDC PO PRN (11:30)
[2018-09-10] MEDS ORDERED: Z GUARD REMEDY 2 OZ OINT TP PRN (11:30)
[2018-09-10] MEDS: LACTULOSE 10 G/15 ML UDC (PYXIS) PO SCH ×3 (11:47→23:05)
[2018-09-10] MEDS: IV D5/0.45 NACL 1,000 ML IV PRN (11:50)
[2018-09-10 16:00] VITALS: BP 136/83
--- NOTE | 2018-09-10 19:00 | NUR ---
MS RN NOTES PATIENT IN BED ALERT ORIENTED X 3. NO ACUTE DISTRESS NOTED. BREATHING UNLABORED. DENIED ANY PAIN AT THIS TIME. IV ACCESS PATENT AND INTACT, NO REDNESS NO SWELLING NOTED.DUE MEDICATIONS GIVEN, NO ASE NOTED. NEEDS ATTENDED AND ANTICIPATED. SAFETY MEASURES IN PLACE. CALL LIGHT WITHIN REACH.ENDORSED TO NIGHT NURSE FOR CONTINUITY OF CARE.
--- NOTE | 2018-09-10 19:30 | NUR ---
STRIKE WARFARE/MISSILE SYSTEMS OFFICER OPENING NOTES RECEIVED PATIENT IN BED AWARE. ALERT AND ORIENTED X2, VERBALLY RESPONSIVE, ABLE TO MAKE NEEDS KNOWN. BREATHING EVEN AND UNLABORED. NO SOB NOTED. TOLERATING ROOM AIR. NO COMPLAINTS OF PAIN OR DISCOMFORT. NO FACIAL GRIMACING. IV ON LEFT HAND G#22 INTACT AND PATENT. SKIN DRY AND WARM TO TOUCH. AFEBRILE. ALL OTHER NEEDS ATTENDED TO. SAFETY MEASURES IN PLACE. CALL LIGHT WITHIN REACH. WILL CONTINUE TO MONITOR.
[2018-09-10 20:00] VITALS: BP 139/89
[2018-09-11] VITALS: BP 112/58
--- NOTE | 2018-09-11 01:51 | NUR ---
AGRICULTURAL ECONOMICS PROFESSOR NOTES PATIENT ACCIDENTLY PULLED OUT IV. NEW IV LINE INSERTED ON RIGHT HAND G#24. GOOD BLOOD RETURN. INTACT AND PATENT. WILL CONTINUE TO MONITOR.
[2018-09-11 04:00] VITALS: BP 123/66
[2018-09-11] MEDS: IV D5/0.45 NACL 1,000 ML IV PRN (04:38)
[2018-09-11] MEDS: LACTULOSE 10 G/15 ML UDC (PYXIS) PO SCH ×3 (05:20→16:37)
[2018-09-11 06:26] LABS: BASOPHILS % (AUTO) 0.8 % (0.0-2.0); EOSINOPHILS % (AUTO) 3.5 % (0.0-6.0); HEMATOCRIT 41 % (39-51); HEMOGLOBIN 14.1 g/dL (13.5-17.5); LYMPHOCYTES # (AUTO) 0.9 /CMM (0.8-4.8); LYMPHOCYTES % (AUTO) 20.7 % (20.0-44.0); MEAN CORPUSCULAR HGB CONC 35 g/dl (31.0-36.0); MEAN CORPUSCULAR VOLUME 102 fL (80-96); MONOCYTES # (AUTO) 0.4 /CMM (0.1-1.30); MONOCYTES % (AUTO) 8.6 % (2.0-12.0); NEUTROPHILS # (AUTO) 2.8 /CMM (1.8-8.9); NEUTROPHILS % (AUTO) 66.4 % (43.0-81.0); PLATELET COUNT (AUTO) 88 /CMM (150-450); RED BLOOD CELL COUNT(AUTO) 3.95 MIL/uL (4.5-6.0); WHITE BLOOD COUNT (AUTO) 4.2 K/uL (4.3-11.0)
[2018-09-11 06:40] LABS: ALBUMIN 2.9 g/dL (3.4-5.0); BILIRUBIN,TOTAL 2.5 mg/dL (0.2-1.0); CALCIUM, SERUM 8.7 mg/dL (8.5-10.1); CREATININE 1.1 mg/dL (0.6-1.3); MAGNESIUM 1.5 mg/dL (1.8-2.4); PHOSPHORUS 2.9 mg/dL (2.5-4.9); POTASSIUM 3.6 mmol/L (3.5-5.1); TOTAL PROTEIN, SERUM 5.9 g/dL (6.4-8.2)
--- NOTE | 2018-09-11 07:08 | NUR ---
MOTION PICTURE PROJECTIONIST CLOSING NOTES PATIENT IN BED RESTING. BREATHING EVEN AND UNLABORED. NO SOB NOTED. TOLERATING ROOM AIR. NO COMPLAINTS OF PAIN OR DISCOMFORT. NO FACIAL GRIMACING. IV ON RIGHT HAND G#24 INTACT AND PATENT. SKIN DRY AND WARM TO TOUCH. AFEBRILE. ALL OTHER NEEDS ATTENDED TO. SAFETY MEASURES IN PLACE. WILL ENDORSE TO ONCOMING NURSE FOR ELMA.
--- NOTE | 2018-09-11 07:34 | NUR ---
director of restaurant Opening Notes 323-1 Patient awake, resting in bed. Alert and oriented x2, Maltese speaking. No complaints of nausea/vomiting at this time. Respirations even and unlabored on room air, no acute distress noted. External patient monitor in place, current rhythm sinus rhythm at 65 bpm. Peripheral IV to the left hand 22 gauge, intact, patent and D5 1/2 NS @ 75 mL/hr. Updated patient on current plan of care and safety measures. Safety and fall precautions in place: bed in lowest and locked position, side rails up x2, bed alarm on, call light and personal possessions within reach. Patient verbalized understanding. Will continue to monitor and intervene as needed.
[2018-09-11 08:00] VITALS: BP 126/92
[2018-09-11 08:29] LABS: ABG BASE EXCESS -3.3 mmol/L; ABG OXYGEN SATURATION 96.2 % (92.0-98.5); ABG PCO2 27.9 mmHg (35.0-45.0); ABG PH 7.455 (7.350-7.450); ABG PO2 88.5 mmHg (75.0-100.0); AaDO2 27.8 mmHg; COHb 1.1 % (0.5-1.5); MetHb 0.3 % (0.0-1.5); O2Hb 94.9 % (94.0-97.0); SITE, ABG Left Radial; VENT MODE, BG ROOM AIR
[2018-09-11 08:30] VITALS: BP 126/92
[2018-09-11] MEDS: Magnesium 1GM/D5W 100ML PREMIX 100 ML IV SCH ×3 (14:02→15:36)
[2018-09-11 16:00] VITALS: BP 134/80
--- NOTE | 2018-09-11 19:13 | NUR ---
MS dramatic art teacher Notes 323-1 Patient awake, resting in bed. Alert and oriented x4, Khmer speaking. No complaints of dizziness or pain at this time. Stable condition, vital signs stable. Respirations even and unlabored on room air, no acute distress noted. Ambulates with steady gait. Skin assessment completed, photos placed in chart. Peripheral IV to the left hand 22 gauge, removed with catheter tip intact. No redness, swelling or bleeding of the site noted. Personal belongings discharged with patient, acknowledged and verified via signature on belongings form. Discharge instructions and Exitcare provided to patient, acknowledged and verified via signature on instructions form. Reviewed and emphasized medication changes with patient. Reviewed dietary concerns with patient and spouse as well. Copies placed in chart. Patient accompanied to lobby in wheelchair with staff member, ALONZO Shahid, discharged home via taxi cab with , Yadira.
== END 2018-09-11 19:00 | disposition home or self-care (01) | DRG 279 ==
LOC: ER 06:43 → MED 09:00 → TELE 10:47 → MED 11:33 → TELE 18:00 → MED 09-11 09:38
PROVIDERS: ADMIT Internal Medicine; ATTEND Internal Medicine
DX: K72.00 Acute and subacute hepatic failure without coma (principal); I50.33 Acute on chronic diastolic (congestive) heart failure; K72.10 Chronic hepatic failure without coma; K74.60 Unspecified cirrhosis of liver; E44.1 Mild protein-calorie malnutrition; E88.09 Other disorders of plasma-protein metabolism, not elsewhere classified; I11.0 Hypertensive heart disease with heart failure; E11.9 Type 2 diabetes mellitus without complications; Z86.19 Personal history of other infectious and parasitic diseases; Z68.27 Body mass index [BMI] 27.0-27.9, adult; Z79.4 Long term (current) use of insulin
CPT/HCPCS: 36415; 36600; 71045-TC; 76700-TC; 80048-TC; 80053-TC; 80061-TC; 80076-TC; 82140-TC; 83690-TC; 83735-TC; 84100-TC; 85025-TC; 87081-TC; G0378; J2405; J3475; J3490; J7030